=== PATIENT | male | born 1990 | race Caucasian/White ===

== ENCOUNTER 2018-09-03 11:49 | Inpatient (IN) | payer SELFPAY ==
[~2018-09-03] VITALS: Ht 170.2 cm; Wt 143.8 kg
[2018-09-03 13:01] LABS: BASOPHIL % 0 % (0-2); PLATELET COUNT 170 x10^3mcL (130-400); RED CELL DISTRIBUTION WIDTH 14.1 % (11.5-14.5)
[2018-09-03 13:32] LABS: CARBON DIOXIDE 21.9 mmol/L (21-32); CHLORIDE SERUM 95 mmol/L (98-107); GFR1 > 60 mL/min; GLUCOSE SERUM 145 mg/dL (74-106); POTASSIUM SERUM 3.4 mmol/L (3.5-5.1); SODIUM SERUM 129 mmol/L (136-145)
[2018-09-03 13:37] LABS: ALBUMIN 3.1 g/dL (3.4-5.0); ALKALINE PHOSPHATASE 47 U/L (46-116); ALT/SGPT 49 U/L (16-63); AST/SGOT 107 U/L (15-37); BILIRUBIN TOTAL 0.5 mg/dL (0.20-1.00)
[2018-09-03 15:14] LABS: MAGNESIUM 1.7 mg/dL (1.8-2.4); PHOSPHOROUS 2.8 mg/dL (2.5-4.9)
[2018-09-03 15:17] LABS: CHOLESTEROL/HDL RATIO 3.4
[2018-09-03 16:22] VITALS: BP 110/45
[2018-09-03 16:27] VITALS: Ht 170.2 cm; Wt 143.8 kg
[2018-09-03 17:31] VITALS: BP 117/59
[2018-09-03 21:35] VITALS: BP 104/57
[2018-09-04 06:40] VITALS: BP 95/48
[2018-09-04 06:40] LABS: BASOPHIL % 0.2 % (0-2); PLATELET COUNT 172 x10^3mcL (130-400); RED CELL DISTRIBUTION WIDTH 13.8 % (11.5-14.5)
[2018-09-04 07:18] LABS: CALCIUM 8.4 mg/dL (8.5-10.1); CARBON DIOXIDE 27.3 mmol/L (21-32); CHLORIDE SERUM 101 mmol/L (98-107); CREATININE SERUM 0.8 mg/dL (0.7-1.3); GFR1 > 60 mL/min; GLUCOSE SERUM 89 mg/dL (74-106); MAGNESIUM 1.9 mg/dL (1.8-2.4); PHOSPHOROUS 3.4 mg/dL (2.5-4.9); POTASSIUM SERUM 3.8 mmol/L (3.5-5.1); SODIUM SERUM 136 mmol/L (136-145)
[2018-09-04 08:15] LABS: microscopic required? YES; urine erythrocyte TRACE (NEGATIVE)
[2018-09-04 09:19] VITALS: BP 106/55
[2018-09-04 16:58] VITALS: BP 103/58
[2018-09-04 21:13] VITALS: BP 125/77
[2018-09-05 05:37] VITALS: BP 103/63
[2018-09-05 07:00] LABS: BASOPHIL % 0.4 % (0-2); PLATELET COUNT 205 x10^3mcL (130-400); RED CELL DISTRIBUTION WIDTH 14.6 % (11.5-14.5)
[2018-09-05 07:21] LABS: CARBON DIOXIDE 27.8 mmol/L (21-32); CHLORIDE SERUM 104 mmol/L (98-107); CREATININE SERUM 0.8 mg/dL (0.7-1.3); GFR1 > 60 mL/min; GLUCOSE SERUM 92 mg/dL (74-106); PHOSPHOROUS 3.5 mg/dL (2.5-4.9); POTASSIUM SERUM 3.9 mmol/L (3.5-5.1); SODIUM SERUM 141 mmol/L (136-145)
[2018-09-05 09:53] VITALS: BP 116/64
[2018-09-05 17:20] VITALS: BP 100/50
[2018-09-05 21:03] VITALS: BP 140/87
[2018-09-06 05:34] VITALS: BP 132/68
[2018-09-06 06:20] LABS: PLATELET COUNT 273 x10^3mcL (130-400); RED CELL DISTRIBUTION WIDTH 14.3 % (11.5-14.5)
[2018-09-06 06:47] LABS: CALCIUM 8.6 mg/dL (8.5-10.1); CARBON DIOXIDE 27.9 mmol/L (21-32); CHLORIDE SERUM 103 mmol/L (98-107); CREATININE SERUM 0.8 mg/dL (0.7-1.3); GFR1 > 60 mL/min; GLUCOSE SERUM 135 mg/dL (74-106); MAGNESIUM 2.1 mg/dL (1.8-2.4); PHOSPHOROUS 3.4 mg/dL (2.5-4.9); POTASSIUM SERUM 4.5 mmol/L (3.5-5.1); SODIUM SERUM 141 mmol/L (136-145)
[2018-09-06 09:44] VITALS: BP 115/54
[2018-09-06 14:14] LABS: BAND NEUTROPHIL 1 % (0-10); BASOPHIL 0 % (0-2); MONOCYTE 5 % (0-7); SEGMENTED NEUTROPHILS 78 % (37-75)
[2018-09-06 14:15] LABS: PLATELET MORPHOLOGY PLATELETS NORMAL; rbc morphology (normal/abnorm) NORMAL (NORMAL)
[2018-09-06 16:50] VITALS: BP 123/75
[2018-09-06 20:53] VITALS: BP 126/79
[2018-09-07 05:11] VITALS: BP 129/74
[2018-09-07 06:37] LABS: PLATELET COUNT 356 x10^3mcL (130-400); RED CELL DISTRIBUTION WIDTH 14.1 % (11.5-14.5)
[2018-09-07 06:49] LABS: CALCIUM 8.6 mg/dL (8.5-10.1); CARBON DIOXIDE 28.1 mmol/L (21-32); CHLORIDE SERUM 105 mmol/L (98-107); CREATININE SERUM 0.8 mg/dL (0.7-1.3); GFR1 > 60 mL/min; GLUCOSE SERUM 129 mg/dL (74-106); MAGNESIUM 2.3 mg/dL (1.8-2.4); PHOSPHOROUS 3.8 mg/dL (2.5-4.9); POTASSIUM SERUM 4.3 mmol/L (3.5-5.1); SODIUM SERUM 142 mmol/L (136-145)
[2018-09-07 07:00] LABS: BASOPHIL % 0 % (0-2)
[2018-09-07 08:37] VITALS: BP 141/73
[2018-09-07 12:20] VITALS: BP 135/63
[2018-09-07 16:11] VITALS: BP 116/68
[2018-09-07 21:30] VITALS: BP 124/49
[2018-09-08 05:59] VITALS: BP 120/69
[2018-09-08 07:37] LABS: RED CELL DISTRIBUTION WIDTH 14.2 % (11.5-14.5)
[2018-09-08 07:40] LABS: BASOPHIL % 0 % (0-2); PLATELET COUNT 418 x10^3mcL (130-400)
[2018-09-08 08:03] VITALS: BP 115/88
[2018-09-08 08:14] LABS: CALCIUM 8.8 mg/dL (8.5-10.1); CARBON DIOXIDE 25.6 mmol/L (21-32); CHLORIDE SERUM 107 mmol/L (98-107); CREATININE SERUM 0.7 mg/dL (0.7-1.3); GFR1 > 60 mL/min; GLUCOSE SERUM 126 mg/dL (74-106); MAGNESIUM 2.5 mg/dL (1.8-2.4); PHOSPHOROUS 3.9 mg/dL (2.5-4.9); POTASSIUM SERUM 4.5 mmol/L (3.5-5.1); SODIUM SERUM 144 mmol/L (136-145)
[2018-09-08 12:18] VITALS: BP 127/64
[2018-09-08 16:20] VITALS: BP 140/83
[2018-09-08 21:43] VITALS: BP 138/81
[2018-09-09 04:57] VITALS: BP 128/65
[2018-09-09 08:55] VITALS: BP 120/78
[2018-09-09 13:29] VITALS: BP 142/74
[2018-09-09] MEDS ORDERED: DOX100 PO (14:18)
[2018-09-09] MEDS ORDERED: MUCINEX600 MG PO (14:19)
[2018-09-09] MEDS ORDERED: TYL325 PO (14:19)
[2018-09-09 14:59] VITALS: BP 142/74
== END 2018-09-09 17:52 | disposition home or self-care (01) | DRG 871 ==
LOC: ED 11:49 → DU 14:46 → MU 14:46 → DU 09-06 14:18
PROVIDERS: Emergency Medicine; Internal Medicine; ADMIT Family Medicine
PROC: 3E02340 Introduction of Influenza Vaccine into Muscle, Percutaneous Approach (ICD-10-PCS; principal; 2018-09-03)
PROC: 5A09357 Assistance with Respiratory Ventilation, Less than 24 Consecutive Hours, Continuous Positive Airway Pressure (ICD-10-PCS; 2018-09-05)
PROC: 5A09357 Assistance with Respiratory Ventilation, Less than 24 Consecutive Hours, Continuous Positive Airway Pressure (ICD-10-PCS; 2018-09-07)
DX: A41.9 Sepsis, unspecified organism (principal); J96.01 Acute respiratory failure with hypoxia; J12.9 Viral pneumonia, unspecified; E87.1 Hypo-osmolality and hyponatremia; Z68.42 Body mass index [BMI] 45.0-49.9, adult; M62.82 Rhabdomyolysis; J45.909 Unspecified asthma, uncomplicated; E11.65 Type 2 diabetes mellitus with hyperglycemia; K21.9 Gastro-esophageal reflux disease without esophagitis; E66.01 Morbid (severe) obesity due to excess calories; E87.6 Hypokalemia; E83.42 Hypomagnesemia; Z88.0 Allergy status to penicillin; Z72.89 Other problems related to lifestyle; Z23 Encounter for immunization
CPT/HCPCS: 36600; 82962; 83880; 86788; 86789; 87804; 90658; 90732; 94150; J1644; J1815; J1885; J1956; J2405; J2920; J3370; J3490; J7030; J7620; Q0092

== ENCOUNTER 2018-09-11 17:48 | Inpatient (IN) | payer SELFPAY ==
[~2018-09-11] VITALS: Ht 170.2 cm; Wt 137.0 kg
[~2018-09-11 17:48] MED LIST: DOX100 PO; MUCINEX600 MG PO; TYL325 PO
[2018-09-11 18:22] VITALS: Ht 170.2 cm; Wt 137.0 kg
[2018-09-11 20:26] LABS: BASOPHIL % 0.4 % (0-2); RED CELL DISTRIBUTION WIDTH 14.5 % (11.5-14.5)
[2018-09-11 20:28] LABS: PLATELET COUNT 418 x10^3mcL (130-400)
[2018-09-11 20:47] LABS: CALCIUM 8.2 mg/dL (8.5-10.1); CARBON DIOXIDE 21.8 mmol/L (21-32); CHLORIDE SERUM 103 mmol/L (98-107); GFR1 > 60 mL/min; GLUCOSE SERUM 87 mg/dL (74-106); SODIUM SERUM 138 mmol/L (136-145)
[2018-09-11 20:49] LABS: FREE T4 1.54 ng/dL (0.76-1.46)
[2018-09-11 20:58] LABS: ALBUMIN 3.1 g/dL (3.4-5.0); ALKALINE PHOSPHATASE 48 U/L (46-116); ALT/SGPT 75 U/L (16-63); AST/SGOT 35 U/L (15-37); BILIRUBIN TOTAL 0.6 mg/dL (0.20-1.00); C REACTIVE PROTEIN 5.4 mg/dL (<=0.9); TOTAL PROTEIN, SERUM 7.3 g/dL (6.4-8.2)
[2018-09-11 21:10] LABS: T3 TOTAL 0.88 ng/mL
[2018-09-11 21:15] LABS: ERYTHROCYTE SED RATE 31 mm/hr (0-15)
[2018-09-12 00:02] VITALS: BP 105/72
[2018-09-12 00:17] LABS: AMYLASE 48 U/L (25-115); CHOLESTEROL 162 mg/dL (<200); CHOLESTEROL/HDL RATIO 4.3; HDL CHOLESTEROL 38 mg/dL (40-60); LIPASE 176 IU/L (73-393); MAGNESIUM 2.2 mg/dL (1.8-2.4); PHOSPHOROUS 3.4 mg/dL (2.5-4.9)
[2018-09-12 00:20] LABS: TRIGLYCERIDES 418 mg/dL (<150)
--- NOTE | 2018-09-12 02:33 | NUR ---
PT PLACED IN [facility] BED FOR COMFORT UNTIL BED UPSTAIRS CAN BE OBTAINED. PT RESPIRATIONS EVEN AND UNLABORED WHEN AT REST. SOB WITH EXERTION NOTED. SAO2 96% ON ROOM AIR. NO OXYGEN NEEDED AT THIS TIME. LUNGS CLEAR BILAT.
[2018-09-12 05:40] LABS: BASOPHIL % 0.3 % (0-2); PLATELET COUNT 346 x10^3mcL (130-400)
[2018-09-12 05:41] LABS: RED CELL DISTRIBUTION WIDTH 14.6 % (11.5-14.5)
[2018-09-12 05:54] LABS: CALCIUM 7.6 mg/dL (8.5-10.1); CARBON DIOXIDE 22.8 mmol/L (21-32); CHLORIDE SERUM 107 mmol/L (98-107); CREATININE SERUM 0.8 mg/dL (0.7-1.3); GFR1 > 60 mL/min; GLUCOSE SERUM 138 mg/dL (74-106); MAGNESIUM 2.1 mg/dL (1.8-2.4); PHOSPHOROUS 3.1 mg/dL (2.5-4.9); POTASSIUM SERUM 3.7 mmol/L (3.5-5.1); SODIUM SERUM 140 mmol/L (136-145)
--- NOTE | 2018-09-12 07:08 | NUR ---
REPORT RECEIVED FROM CHASIDY PRITCHETT AT [facility] . PT LYING ON RIGHT SIDE WITH NAD. PT VERALIZED "FEELING BETTER" EDUCTED ABOUT COLLECTION OF URINE SAMPLE NEEDED. PT IS AWAKE ALERT AND ORIENTED. PT SPEAKS IN CLEAR SENTENCES WITHOUT DIFFICULTY LUNG SOUNDS ARE CLEAR BILATERALY. DENIES PAIN. NON PRODUCTIVE COUGH. WILL CONTINUE TO MONITOR.
--- NOTE | 2018-09-12 07:13 | NUR ---
REPORT TO SHREYAS GUARDADO. PT RESTING NO DISTRESS AT THIS TIME.
--- NOTE | 2018-09-12 07:15 | NUR ---
CONTACTED PHARMACIST SUAD ABOUT PATIENTS PCN ALLERGY. PER PHARMACIST JUST NEED TO OBSERVE PATIENT FOR ALLERGIC REACTION, LOW PROBABILITY OF ALLERGY.
--- NOTE | 2018-09-12 07:17 | NUR ---
PT GIVEN WATER PER REQUEST. PT GIRLFRIEND AT BEDSIDE FOR COMFORT.
--- NOTE | 2018-09-12 07:45 | NUR ---
CALLED TO GIVE REPORT, NO ANSWER
--- NOTE | 2018-09-12 07:52 | NUR ---
COLLECTION OF URINE SENT TO LAB, PT DISPLAYED SPUTUM WITH RED TINGE NOTED AFTER COUGHING EPISDOE.NAD RESPIRAATIONS E/U REPORT GIVEN TO SUPIN TO ASSUME CARE OF PT. INFORMED RN OF NEW FINDINGS.
[2018-09-12 07:55] LABS: microscopic required? NO
[2018-09-12 08:17] LABS: UA SPECIFIC GRAVITY >=1.030 (1.005-1.035); urine erythrocyte NEGATIVE (NEGATIVE)
--- NOTE | 2018-09-12 08:20 | NUR ---
RECEIVED FROM ER VIA NITHIN MCLEAN. ADMITS FOR PNA. STATED JUST GOT DISCHARGED FROM [facility] 2 DAYS AGO. NOTED WITH DRY COUGH, STATED WITH TING BLOOD TO SPUTUM IN ER. TELE# 43 INPLACED NSR AT 83. STATED CHEST PAIN TO MID CHEST 2/10 ON PAIN SCALE. GEN BODY WEAKNESS. OBESITY. IV ACCESS TO RFA NOTED INTACT. NO EDEMA NOTED. BREATHING ON ROOM AIR AT THIS TIME, NO SOB NOTED. PLAN OF CARE INFORMED, CALL LIGHT PLACED WITHIN EASY REACH. SIDERAILS UP X2.
--- NOTE | 2018-09-12 08:25 | NUR ---
RT AT BEDSIDE FOR BREATHING TX.
--- NOTE | 2018-09-12 08:45 | NUR ---
HAD CCHO DIET FOR BREAKFAST, TOLERATED WELL. KEPT NPO FOR CT ANGIO. PATIENT AND HIS GIRLFRIEND AT BEDSIDE MADE AWARE.
--- NOTE | 2018-09-12 08:54 | NUR ---
US THYROID ONGOING AT BEDSIDE.
--- NOTE | 2018-09-12 10:00 | NUR ---
IV CATHETER#20 INSERTED BY RN DIONISIO TO CHAN WITH GOOD BLD RETURNED AND FLUSHED WELL. THIS ACCESS FOR CT ANGIO.
[2018-09-12 10:01] VITALS: BP 105/47
[2018-09-12 10:15] VITALS: BP 105/47; BP 135/75
--- NOTE | 2018-09-12 12:21 | NUR ---
RECEIVED CALL FROM [facility]MAS[facility] FOR CT CHEST POSITIVE FOR PE. DOCTOR VICENTE MADE AWARE. NOTED NEW ORDER FOR HEPARIN DRIPS.
--- NOTE | 2018-09-12 13:44 | NUR ---
HEPARIN LOADING DOSE 52609 UNITS IVP GIVEN AND HEPARIN DRIPS FOR PE STARTED AT 1800 UNITS/HR PER PROTOCAL. VARIFIED BY ME AND SHREYAS NICHOLE.
[2018-09-12 14:31] VITALS: BP 110/59
[2018-09-12 16:16] VITALS: BP 117/75
--- NOTE | 2018-09-12 16:19 | NUR ---
PATIENT TOOK A SHOWER, NO ANY DISTRESS NOTED. IV SITE TO RAC CLEANED AND NEW DRSG APPLIED.
--- NOTE | 2018-09-12 17:45 | NUR ---
NO ANY DISTRESS THROUGHOUT SHIFT. HEPARIN DRIP ONGOING AT 1800 UNITS/HR TO [facility] IV SITE PER PROTOCAL, NEXT PTT DRAW IS AT 1930HRS. AMBULATORY TO BATHROOM WITH STEADY GAIT. VSS. TYLENOL 650MG PO GIVEN X1 FOR HEADACHE WITH GOOD RELIEF. IVF NS TO RFA INFUSING WELL. SCHEDULED MEDS GIVEN. TOLERATED TO [facility] DIET WELL.
--- NOTE | 2018-09-12 19:52 | NUR ---
PATIENT RECEIVED AWAKE, ALERT, ORIENTED X4. RESPIRATION EVEN AND UNLABORED, POSITIVE DRY COUGH, ON ROOM AIR. ONGOING 0.9% NS AT 150 CC/HR INFUSING WELL AT THE RIGHT FOREARM. HEPARIN DRIP AT 1800 UNITS/HR INFUSING WELL AT THE RIGHT ANTECUBITAL AREA, CT ANGIO- POSITIVE PE. VOIDING FREELY WITHOUT DIFFICULTY, USES URINAL. GENERALIZED WEAKNESS TO EXTREMITIES. POSITIVE ORAL THRUSH. ON TELE #43. DENIES PAIN AT THIS TIME. WILL CONTINUE TO MONITOR.
--- NOTE | 2018-09-12 20:15 | NUR ---
LATEST PTT LEVEL 64.1 NO CHANGE PER HEPARIN PROTOCOL. WILL RECHECK PTT IN 4 HOURS. WILL CONTINUE TO MONITOR.
[2018-09-12 21:05] VITALS: BP 124/77
--- NOTE | 2018-09-13 01:20 | NUR ---
PATIENTS LATEST PTT LEVEL 39.9 REBOLUS WITH 5500 UNITS OF HEPARIN AND INCREASED THE DRIP BY 300 UNITS/HR PER PROTOCOL. WILL RECHECK PTT IN 4 HOURS.
[2018-09-13 05:05] VITALS: BP 104/54
[2018-09-13 06:09] LABS: BASOPHIL % 0.3 % (0-2); PLATELET COUNT 342 x10^3mcL (130-400)
--- NOTE | 2018-09-13 06:33 | NUR ---
PATIENT RESTING IN BED. RESPIRATION EVEN AND UNLABORED, ON O2 2L PER NASAL CANNULA. IV SITE NO SIGN OF INFILTRATION. ASSISTED WITH NEEDS. SAFETY OBSERVED. PLACED BED IN THE LOWEST POSITION. PLACED CALL LIGHT WITHIN REACH AT ALL TIMES. STAYED OVERNIGHT.
[2018-09-13 06:36] LABS: RED CELL DISTRIBUTION WIDTH 14.8 % (11.5-14.5)
[2018-09-13 06:45] LABS: CALCIUM 8.1 mg/dL (8.5-10.1); CARBON DIOXIDE 23.2 mmol/L (21-32); CHLORIDE SERUM 106 mmol/L (98-107); CREATININE SERUM 0.7 mg/dL (0.7-1.3); GFR1 > 60 mL/min; GLUCOSE SERUM 105 mg/dL (74-106); MAGNESIUM 2.1 mg/dL (1.8-2.4); PHOSPHOROUS 2.9 mg/dL (2.5-4.9); POTASSIUM SERUM 4.1 mmol/L (3.5-5.1); SODIUM SERUM 139 mmol/L (136-145)
--- NOTE | 2018-09-13 07:05 | NUR ---
RECEIVED BEDSIDE REPORT, SEEN RESTING WITH EYES CLOSED. BREATHING E/U ON O2 2LPM N/C. TELE# 43 NSR. ON HEPARIN DRIP INFUSING AT 2100 UNITS/HR PER PROTOCAL, IV SITE TO RAC INTACT AND NO INFILTRATION NOTED. NS TO RFA INFUSING WELL AT 150ML/HR. CALL LIGHT NOTED WITHIN EASY REACH. SIDERAILS UP X2. SPOUSE AT BEDSIDE. WILL CONTINUE TO MONITOR.
--- NOTE | 2018-09-13 07:08 | NUR ---
PTT THIS AM PENDING RESULT.
--- NOTE | 2018-09-13 08:05 | NUR ---
PTT STILL PENDING.
[2018-09-13 08:24] VITALS: BP 102/68
--- NOTE | 2018-09-13 08:30 | NUR ---
PTT LEVEL =82.9, REDUCED HEPARIN BY 300 UNITS/HR, NOW RUNNING AT 1800 UNITS/HR PER PROTOCAL, NEXT PTT DRAW AT 1230HRS.
--- NOTE | 2018-09-13 09:50 | NUR ---
PLACED PATIENT ON BIPAP SETTINGS: /6 RATE 14 FIO2 30%. PATIENT CONFIRMED COMFORT ON BIPAP MASK.
[2018-09-13 11:58] VITALS: BP 118/70
--- NOTE | 2018-09-13 14:00 | NUR ---
PTT LEVEL =59.3, HEPARIN CONTINUED WITH THE SAME RATE AT 1800 UNITS/HR. NEXT PTT DRAW IS AT 1800HRS.
--- NOTE | 2018-09-13 15:57 | NUR ---
Initial Nutrition Assessment Dx: PNA, dehydration PMHx: Brain cyst, asthma PSHx: Brain cyst drainage (2004) Labs: (09/13) Na 139, K 4.1, BG 105, BUN 8, Cr 0.7, Ca 8.1L, P 2.9, WBC 8.6, H/H 13.4/39L, TG 418H, A1c 6.4H Meds: Colace, Levaquin, Wetmore, NSIV, Tylenol, Vancocin, Zofran, Coumadin, Heparin Diet: CCHO PO Intake: (09/12) B/L: 100% Ht: 67" (170 cm) Wt: 301# (136.9 kg) BMI: 47.3 (Morbidly obese) IBW: 148# %IBW: 203% AJBW: 186# (84.7 kg) UBW: 310-330# Age: 28 y/o male Food Allergies: Skin: Jayden: 20 Edema: None GI: Last BM x 1 (09/13) Per H&P, pt. admitted with worsening SOB x 1 days associated with non-productive coughing and chills. 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 Pt. on BIPAP for respiratory support and otherwise, had no acute events overnight per provider progress notes. Pt. endorses excellent appetite that has improved since admission and no GI distress associated with diet. States that he is newly diagnosed with pre-DM but has handouts from previous admission. Provided with F/U verbal education on CCHO counting. T: N/V/D > 3 days Problem with: No c/o N/V/D/C Problems with: Chewing: N Swallowing: N Current appetite: Excellent, improved. Recent wt change: None %wt change: N/A Vitamin/Supplement use: None Special diet at home: CCHO diet Physical activity: Walking occasionally, but mostly sedentary Education: Notified pt. of CCHO diet and associated restrictions. Emphasized the importance of CCHO counting for optimal BG management. Encouraged pt. to attend facility DM class for more management tips. Advised pt. to incorporate physical activities such as walking and stretching on a daily basis for both weight/BG management. Pt. verbalized understanding and appreciation for DM education. Offered lower calorie diet for weight management; pt. declined to change diet order at this time, and will pick and choose foods to limit his caloric intake. Estimated Nutritional Needs Based on adjusted body weight 84.7 kg: Energy: 5315-4678 kcal/d (20-22 kcal/kg- morbid obesity/wt. maintenance) Protein: 68-84 g/d (0.8-1.0 g/kg)-maintenance and preservation of lean body mass Fluid: 9327-6661 ml/d (1 ml/kcal-fluid balance) or per doctor Nutrition Diagnosis 1. Morbid obesity r/t decreased nutrient needs 2/2 reported sedentary lifestyle AEB pt. statements of not participating in physical activities on a regular basis and measured BMI 47.3. Intervention/RD recommendations 1. Continue CCHO diet as ordered and as tolerated. Monitor/Evaluate Goal: PO intake at least 75% of estimated needs Monitor: PO intake, Labs, GI function, diet tolerance, weights F/U in 7 days as low risk (3/)
--- NOTE | 2018-09-13 15:58 | NUR ---
Intervention/RD recommendations 1. Continue CCHO diet as ordered and as tolerated.
[2018-09-13 16:02] VITALS: BP 104/62
--- NOTE | 2018-09-13 17:25 | NUR ---
NO ANY DISTRESS THROUGHOUT SHIFT. VSS. TYLENOL 650MG PO GIVEN FOR HEADACHE WITH GOOD RELIEF. HEPARIN DRIPS ONGOING PER PROTOCAL AT 1800 UNITS/HR. DENIES CHEST PAIN, STATED SOME CHEST PRESSURE WHEN COUGHING. BREATHING E/U ON ROOM AIR. BRP. VOIDS FREELY. TOLERATED TO [facility] DIET WELL.
--- NOTE | 2018-09-13 18:32 | NUR ---
PATIENT AMBULATED ON THE HALLWAY ACCOMPANIED BY PATIENT'S MOTHER, STATED FEELING DIZZY. ASSISTED PATIENT BACK TO BED, DENIES CHEST PAIN. O2 2LPM MAINTAINED, V/S CHECKED BP 111/71, HR 77, RR 20, O2SAT 99% WILL CONTINUE TO MONITOR.
--- NOTE | 2018-09-13 19:00 | NUR ---
PTT LEVEL =34, REBOLUS 8200 UNITS IVP AND INCREASED RATE TO 2300 UNITS/HR PER HEPARIN PROTOCAL, NEXT PTT DRAW ORDERED AT 2300HRS, PATIENT MADE AWARE.
--- NOTE | 2018-09-13 19:24 | NUR ---
EYES CLOSED, EASILY AWAKENED. ORIENTED TO NAME, PLACE, TIME AND SITUATION. SPEECH CLEAR AND APPROPRIATE. BREATHING EVEN AND UNLABORED ON ROOM AIR, LUNG SOUNDS CLEAR. NO COUGHING NOTED AT THIS TIME. STATED HAVING NO SHORTNESS OF BREATH AT THIS TIME, BUT STATED WAS SOB WHEN AMBULATING IN HALLWAY. STATED HAVING SLIGHT DIZZINESS. IVF OF NS AT 150ML/HR INFUSING TO RIGHT FOREARM IV. HEPARIN DRIP INFUSING AT 2300 UNITS/HR INFUSING TO RIGHT AC IV. BOTH IV SITES FREE FROM REDNESS OR SWELLING. NOTED NEXT PTT ORDER IS AT 2300H.
[2018-09-13 20:34] VITALS: BP 126/70
--- NOTE | 2018-09-13 21:45 | NUR ---
pt asked to have bipap on standy. wanted to eat a sandwich. will call once done and ready to be back on bipap. in room, to stay the night, ok with kaden garvey.
--- NOTE | 2018-09-13 23:13 | NUR ---
resp therapist earlier placed pt back on bipap, ipap 14, epap 6, rate 14, fio2 28%. pt has eyes closed at this time. on bipap. hob kept elevated 30 deg. call light within easy reach. on recliner at bedside.
[2018-09-13 23:41] VITALS: BP 110/58
--- NOTE | 2018-09-13 23:43 | NUR ---
STATED HAVING ACID LIKE/HEARTBURN TYPE OF PAIN TO CHEST. VITAL SIGNS TAKEN, STABLE. NO CHANGES TO HEART RHYTHM, REMAINED SINUS RHYTHM ON TELE. PAGED DR. DORADO
--- NOTE | 2018-09-13 23:45 | NUR ---
dr. caldwell called, informed of pt's complaint of acid/heartburn pain to chest, informed vital signs stable, no changes to heart rhythm on tele. she stated she will put in orders.
--- NOTE | 2018-09-13 23:55 | NUR ---
lab called, ptt 85.9. reduced heparin drip rate from 2300 units/hr to 2000 units/hr per heparin drip protocol. ptt ordered for 0400h
--- NOTE | 2018-09-14 00:07 | NUR ---
[place]A ADMINISTERED PO ORDERED.
--- NOTE | 2018-09-14 02:50 | NUR ---
EYES CLOSED, ON BIPAP, SAME SETTINGS. RATE IS 25/MIN. HOB ELEVATED 30 DEG. CALL LIGHT WITHIN EASY REACH. WITH EYES CLOSED, ON RECLINER. HEPARIN DRIP INFUSING AT 2000 UNITS/HR. IVF OF NS AT 150ML/HR. BOTH INFUSING WELL. NO REDNESS OR SWELLING NOTED TO BOTH IV SITES TO RIGHT AC AND RIGHT FOREARM.
--- NOTE | 2018-09-14 03:46 | NUR ---
pt awake and alert, stated he took off bipap, stated does not want to wear it for now. breathing even and unlabored on room air. informed resp therapist mary. pt also stated he walked to restroom, passed soft stool.
--- NOTE | 2018-09-14 03:48 | NUR ---
PT TOOK OFF BIBAP.
[2018-09-14 05:14] LABS: BASOPHIL % 0.3 % (0-2); PLATELET COUNT 326 x10^3mcL (130-400)
[2018-09-14 05:15] LABS: RED CELL DISTRIBUTION WIDTH 14.9 % (11.5-14.5)
--- NOTE | 2018-09-14 05:19 | NUR ---
PTT RESULT PENDING
[2018-09-14 05:28] LABS: CALCIUM 8.4 mg/dL (8.5-10.1); CHLORIDE SERUM 107 mmol/L (98-107); CREATININE SERUM 0.7 mg/dL (0.7-1.3); GFR1 > 60 mL/min; GLUCOSE SERUM 100 mg/dL (74-106); MAGNESIUM 2.2 mg/dL (1.8-2.4); PHOSPHOROUS 3.8 mg/dL (2.5-4.9); SODIUM SERUM 141 mmol/L (136-145)
[2018-09-14 05:32] VITALS: BP 107/65
--- NOTE | 2018-09-14 05:58 | NUR ---
lab called, ptt 61.6. therapeutic. kept heparin drip rate at 2000 units/hr. ptt ordered for 1000h per protocol
--- NOTE | 2018-09-14 07:08 | NUR ---
awake and alert, breathing even and unlabored. stated passed gas, no stool yet. iv infusing well to left ac. aware need to ambulate in hallway after breakfast. denies having pain. incisions sites to abd intact with dermabond. endorsed to nurse bellamy
--- NOTE | 2018-09-14 07:10 | NUR ---
eyes closed, breathing even and unlabored on room air. hob kept elevated 30 deg. endorsed to nurse josesito
[2018-09-14 09:10] VITALS: BP 112/66
--- NOTE | 2018-09-14 09:19 | NUR ---
PT ON BED, AWAKE, ALERT, AND ORIENTED. HAS NO COMPLAINT OF PAIN, SOB, OR DIZZINESS. RESPONDS WELL TO QUESTION AND ANSWER. CLEAR PACO LUNG FIELD, SYMMETRICAL CHEST EXPANSION AND UNLABORED.
--- NOTE | 2018-09-14 09:24 | NUR ---
RECIEVED ORDER TO D/C. HEPARIN DRIP
--- NOTE | 2018-09-14 10:58 | NUR ---
HEPARIN D/C PER 'S ORDER
[2018-09-14 12:00] VITALS: BP 119/75
--- NOTE | 2018-09-14 14:45 | NUR ---
PT ON BED RESTING WILL CONTINUE TO MONITOR
[2018-09-14 16:50] VITALS: BP 127/86
--- NOTE | 2018-09-14 18:13 | NUR ---
PT ON BED. RESTING. COUMADIN TAKEN. WILL CONTINUE TO MONITOR
--- NOTE | 2018-09-14 19:43 | NUR ---
RECEIVED AWAKE IN BED WATCHING TV. SKIN WARM AND DRY TO TOUCH. LUNGS WITH DIMINISHED BREATH SOUNDS BILATERAL BASES. HHN TC IN PROGRESS BY RT, FAMILY AT BEDSIDE VERY SUPPORTIVE OF PATIENT'S CURRENT PLAN OF CARE. ON TELE #43 SIYH SINUS RYTHM AT 78/MIN. PLACED CALL LIGHT WITHIN REACH, INSTRUCTED TO CALL FOR ANY ASSSITANCE NEEDED AND VERBALIZED UNDERSTANDING.
--- NOTE | 2018-09-14 21:50 | NUR ---
AMBULATED ALONG THE UNIT TOLERATING WELL. ORAL FLUIDS TAKEN, NO NAUSEA/VOMTING NOTED. ALL DUE MEDICATIONS ADMINISTERED. NO ADVERSE REACTIONS NOTED FROM ATB THERAPY.
[2018-09-14 22:06] VITALS: BP 121/69
--- NOTE | 2018-09-14 23:50 | NUR ---
HS SNACK GIVEN PER PATIENT'S REQUEST, TOELRATED WELL.
--- NOTE | 2018-09-15 00:10 | NUR ---
EYES CLOSED, APPARENTLY SLEEPING SOUNDLY. RESPIRATION EVEN AND UNLABORED. NO S/S OF ACUTE RESPRIATORY DISTRESS.
--- NOTE | 2018-09-15 05:29 | NUR ---
CONTINUES MECCA TB IVPB FOR MANAGEMENT OF PNEUMONIA WITHOUT ADVERSE REACTION NOTED. IVF NS AT 150ML/HR FOR MAANGEMENT OF DEHYDRATUION. KEPT CLEAN AND DRY. ALL NEEDS ATTENDED.
[2018-09-15 05:39] VITALS: BP 115/64
--- NOTE | 2018-09-15 08:36 | NUR ---
PT ON BED, AWAKE, ALERT, AND ORIENTED. HAS NO COMPLAINT OF PAIN, SOB, OR DIZZINESS. RESPONDS WELL TO QUESTION AND ANSWER. CLEAR PACO LUNG FIELD, SYMMETRICAL CHEST EXPANSION AND UNLABORED. ACTIVE BOWEL SOUNDS NOTED. NON DISTENDED ABDOMEN. PT REFUSED COLACE. SIDE RAILS UP, CALL LIGHT WITHIN REACH, WILL CONTINUE TO MONITOR.
[2018-09-15 09:15] VITALS: BP 120/78
[2018-09-15 12:15] VITALS: BP 121/84
--- NOTE | 2018-09-15 13:30 | NUR ---
PT'S IV ANTIBIOTIC HANGED AND INFUSING WELL. WILL CONTINUE TO MONITOR
[2018-09-15 14:23] VITALS: BP 121/84
[2018-09-15 16:45] VITALS: BP 116/74
--- NOTE | 2018-09-15 17:00 | NUR ---
PT AMBULATING AROUND THE HALLWAY WITH HIS . WILL CONTINUE TO MONITIR
--- NOTE | 2018-09-15 18:07 | NUR ---
PT'S COUMADIN GIVEN. WILL CONTINUE TO MONITOR
--- NOTE | 2018-09-15 19:45 | NUR ---
AWAKE AND VERBALLY RESPONISVE, PT IN BED WATCHING TV. SKIN WARM AND DRY TO TOUCH WITH TRACED EDEMA ON B.E. ENCOURAGED TO ELEVATE BLE ON PILLOWS. RESPIRATIONE ROJELIO AND UNLABORED WITH FINE CRACKLES BILATERAL BASES. IV SITE AT THE [facility] LEAKING, IV REMOVED AND PRESSURE DRESSING APPLIED, PLACED CALL LIGHT WITHIN REACH, INSTRCUTED TO CALL FOR ANY ASSISTANCE NEEDED AND VERBALIZED UNDERSTANDING.
[2018-09-15 21:14] VITALS: BP 114/70
--- NOTE | 2018-09-15 21:30 | NUR ---
IV SITE AT THE RFA LEAKING, WITH REDNESS NOTED. IV REMOVED AND, PRESSURE DRESSING APPLIED. NEW IV ACCESS INSERTED AT THE LFA USING G#22 WITH GOOD BLOOD FLOW RETURN. CONTINUES ON ATB IVPB FOR MANAGEMENT OF PNEUMONIA ORDERED. ORAL FLUIDS TOLERATING WELL.
--- NOTE | 2018-09-16 02:04 | NUR ---
EYES CLSOED, NOF ACIAL GRIMACING NOTED. RESPIRATION EVEN AND UNLABORED. NO S/S OFA CUTE DISTRESS.
--- NOTE | 2018-09-16 05:38 | NUR ---
DUE MEDICATIONS GIVEN AND WELL TOLERATED. NO ADVERSE REACTION NOTED FROM ATB THERAPY . ALL NEEDS ATTENDED.
[2018-09-16 06:07] VITALS: BP 109/78
[2018-09-16 06:20] LABS: BASOPHIL % 0.4 % (0-2); PLATELET COUNT 305 x10^3mcL (130-400); RED CELL DISTRIBUTION WIDTH 14.6 % (11.5-14.5)
[2018-09-16 06:26] LABS: CALCIUM 8.8 mg/dL (8.5-10.1); CARBON DIOXIDE 24.8 mmol/L (21-32); CHLORIDE SERUM 105 mmol/L (98-107); CREATININE SERUM 0.8 mg/dL (0.7-1.3); GFR1 > 60 mL/min; GLUCOSE SERUM 101 mg/dL (74-106); POTASSIUM SERUM 3.9 mmol/L (3.5-5.1); SODIUM SERUM 140 mmol/L (136-145)
[2018-09-16 09:28] VITALS: BP 135/65
[2018-09-16 13:10] VITALS: BP 110/61
--- NOTE | 2018-09-16 13:27 | NUR ---
PT AMBULATING AROUND THE HALLWAY. WILL CONTINUE TO MONITOR
[2018-09-16] MEDS ORDERED: COUMADIN5 MG PO (14:41)
[2018-09-16] MEDS ORDERED: PROAIR HFA8.5 GM IH (14:42)
[2018-09-16] MEDS ORDERED: LEVAQUIN750 MG PO (14:43)
[2018-09-16] MEDS ORDERED: ROBL PO (14:46)
[2018-09-16 15:11] VITALS: BP 110/61
--- NOTE | 2018-09-16 16:56 | NUR ---
IV SITE HAS BEEN D/C. D/C INSTRUCTION DONE
== END 2018-09-16 16:57 | disposition home or self-care (01) | DRG 871 ==
LOC: ED 17:48 → DU 22:25
PROVIDERS: Specialist; ADMIT General Practice
PROC: 5A09357 Assistance with Respiratory Ventilation, Less than 24 Consecutive Hours, Continuous Positive Airway Pressure (ICD-10-PCS; principal; 2018-09-13)
DX: A41.9 Sepsis, unspecified organism (principal); J18.9 Pneumonia, unspecified organism; J96.01 Acute respiratory failure with hypoxia; I26.99 Other pulmonary embolism without acute cor pulmonale; Z68.42 Body mass index [BMI] 45.0-49.9, adult; E44.0 Moderate protein-calorie malnutrition; E87.1 Hypo-osmolality and hyponatremia; B37.0 Candidal stomatitis; D68.69 Other thrombophilia; J45.909 Unspecified asthma, uncomplicated; E86.0 Dehydration; E11.9 Type 2 diabetes mellitus without complications; E83.51 Hypocalcemia; K21.9 Gastro-esophageal reflux disease without esophagitis; E66.01 Morbid (severe) obesity due to excess calories; Z88.0 Allergy status to penicillin; Z79.899 Other long term (current) drug therapy; Z87.01 Personal history of pneumonia (recurrent)
CPT/HCPCS: 36600; 84439; 87804; J0456; J1450; J1644; J1885; J1956; J3370; J7030; J7050; J7613; J7620; J7644; Q0092; Q9967